=== PATIENT | female | born 1930 | race Caucasian/White ===

== ENCOUNTER 2016-06-01 14:25 | Emergency (ER) | payer MEDICARE, BC, OTHER ==
[~2016-06-01] VITALS: Ht 152.4 cm; Wt 79.4 kg
[~2016-06-01 14:25] MED LIST: /ATOR40TA PO; /WARF25TA; ACET65TA PO; AMLO5TAB2 PO; ASPI81TA83; ASPI81TA85 PO; ATEN25TA PO; B-1210009 PO; BISA10SU2; CALC1CAP31 PO; CIPR500T89 PO; CIPRO; COLA100C2; CORE25TA PO; DARV100T; DEMA20TA6 PO; DULC5TAB PO; EX-L5TAB; FE T325T PO; FERR325T; FERR325T3 PO; FLUC150T PO; FOLI1TAB2 PO; FOLI1TAB86 PO; HYDR50TA7; INSUDET SC; INSUH10VL SC; INSUHUMDS SC; INSULIN NPH SC; ISOS20TAB PO; LASI20TA PO; LEVEINJ SC; LEVOXYL25 MCG; LIPI20TA PO; LOPI600T; LOPI600T PO; MULTCAP PO; MULTIVIT; NORV5TAB; PERC5TAB6 PO; POTA75TA2 PO; SYNT100T PO; SYNT137T7 PO; TENO25TA; THERGRAN PO; TORS20TA2 PO; TYLE325T5 PO; ULTR50TA PO; VITA100027; VITA100072 PO; VITA500T; acetaminophen
[2016-06-01 15:40] LABS: BASO % 0.2 % (0.0-1.0); EOS # 0.2 K/mm3 (0.0-0.50); EOS % 1.7 % (0.0-3.0); LARGE UNSTAINED CELL # 0.1 K/mm3 (0.0-0.4); LARGE UNSTAINED CELL % 1.1 % (0.0-4.0); LYMPH # 1.4 K/mm3 (1.5-4.5); LYMPH % 12.8 % (24.0-44.0); MEAN CORPUSCULAR HEMOGLOBIN 29.2 pg (27.0-33.0); MEAN CORPUSCULAR HGB CONC 32.9 g/dl (32.0-36.5); MEAN CORPUSCULAR VOLUME 88.9 fl (80.0-96.0); MONO # 0.5 K/mm3 (0.0-0.8); MONO % 5.4 % (0.0-5.0); NEUTROPHILS # 7.8 K/mm3 (1.8-7.7); NEUTROPHILS % 78.9 % (36.0-66.0); PLATELET COUNT, AUTOMATED 308 k/mm3 (150-450); RED CELL DISTRIBUTION WIDTH 13.7 % (11.5-14.5); WHITE BLOOD COUNT 9.8 K/mm3 (4.0-10.0)
[2016-06-01 15:45] LABS: INR 0.99
[2016-06-01 16:11] LABS: ALBUMIN 2.6 GM/DL (3.2-5.2); ALBUMIN/GLOBULIN RATIO 0.65 (1.00-1.93); BILIRUBIN,DIRECT 0.2 MG/DL (0.0-0.2); BILIRUBIN,TOTAL 0.4 MG/DL (0.2-1.0); CALCIUM LEVEL 8.1 MG/DL (8.8-10.2); CREATININE FOR GFR 1.48 MG/DL (0.55-1.02); GLOMERULAR FILTRATION RATE 35.6 (>32); POTASSIUM SERUM 4.1 MEQ/L (3.5-5.1); TOTAL PROTEIN 6.6 GM/DL (6.4-8.2)
[2016-06-01 16:13] VITALS: BP 178/72
[2016-06-01] MEDS ORDERED: CIPR500T89 PO (16:27)
== END 2016-06-01 16:41 | disposition home or self-care (01) ==
LOC: M ED 15:15
DX: N30.00 Acute cystitis without hematuria (principal); E11.9 Type 2 diabetes mellitus without complications; I50.9 Heart failure, unspecified; I25.2 Old myocardial infarction; E03.9 Hypothyroidism, unspecified; Z90.5 Acquired absence of kidney; Z95.1 Presence of aortocoronary bypass graft; Z79.82 Long term (current) use of aspirin; Z79.899 Other long term (current) drug therapy; Z88.4 Allergy status to anesthetic agent; Z91.041 Radiographic dye allergy status; Z91.89 Other specified personal risk factors, not elsewhere classified; Z88.6 Allergy status to analgesic agent; Z88.2 Allergy status to sulfonamides

== ENCOUNTER 2016-06-17 13:28 | Emergency (ER) | payer MEDICARE, BC, OTHER ==
[~2016-06-17] VITALS: Ht 152.4 cm; Wt 80.3 kg
[2016-06-17] MEDS ORDERED: MIRA3350 PO (13:48)
[2016-06-17 14:18] LABS: BASO % 0.1 % (0.0-1.0); EOS # 0.1 K/mm3 (0.0-0.50); EOS % 1.1 % (0.0-3.0); LARGE UNSTAINED CELL # 0.1 K/mm3 (0.0-0.4); LARGE UNSTAINED CELL % 1.2 % (0.0-4.0); LYMPH # 1.1 K/mm3 (1.5-4.5); LYMPH % 10.8 % (24.0-44.0); MEAN CORPUSCULAR HEMOGLOBIN 29.2 pg (27.0-33.0); MEAN CORPUSCULAR HGB CONC 32.2 g/dl (32.0-36.5); MEAN CORPUSCULAR VOLUME 90.7 fl (80.0-96.0); MONO # 0.4 K/mm3 (0.0-0.8); MONO % 3.9 % (0.0-5.0); NEUTROPHILS # 8.7 K/mm3 (1.8-7.7); NEUTROPHILS % 82.9 % (36.0-66.0); PLATELET COUNT, AUTOMATED 336 k/mm3 (150-450); RED CELL DISTRIBUTION WIDTH 13.8 % (11.5-14.5); WHITE BLOOD COUNT 10.5 K/mm3 (4.0-10.0)
[2016-06-17 14:25] LABS: INR 0.99
[2016-06-17 14:38] LABS: CALCIUM LEVEL 8.7 MG/DL (8.8-10.2); CREATININE FOR GFR 1.72 MG/DL (0.55-1.02); GLOMERULAR FILTRATION RATE 29.9 (>32); POTASSIUM SERUM 3.9 MEQ/L (3.5-5.1)
[2016-06-17 16:12] VITALS: BP 181/79
--- NOTE | 2016-06-18 07:09 | REP ---
PELVIC ULTRASOUND: HISTORY: Bleeding. COMPARISON: No recent significant priors for comparison. Transvesical and transvaginal imaging was obtained. FINDINGS: The uterus measures 7.7 x 5.7 x 6.8 cm. The parenchymal echotexture is markedly heterogeneous. Innumerable areas of echogenic foci casting acoustic shadows noted. The endometrial echo complex is markedly abnormal measuring nearly 4 mm in thickness and is markedly heterogenous. Neither ovary could be visualized transvesically or transvaginally. There is no free fluid seen in the cul-de-sac. The urinary bladder measured approximately 7 x 4 x 6.8 cm. IMPRESSION: Markedly abnormal endometrial echo complex. Neoplastic change cannot be ruled out and in fact is suspected. Clinical correlation necessary. Myomatous changes and other findings as described above. Signed by Ravindra Gage DO 06/18/2016 09:20 A
== END 2016-06-17 16:13 | disposition home or self-care (01) ==
LOC: M ED 14:28
DX: N95.0 Postmenopausal bleeding (principal); R93.5 Abnormal findings on diagnostic imaging of other abdominal regions, including retroperitoneum; E11.9 Type 2 diabetes mellitus without complications; I10 Essential (primary) hypertension; I50.9 Heart failure, unspecified; Z87.442 Personal history of urinary calculi; Z79.82 Long term (current) use of aspirin; Z79.899 Other long term (current) drug therapy; Z79.4 Long term (current) use of insulin; Z91.041 Radiographic dye allergy status; Z91.89 Other specified personal risk factors, not elsewhere classified; Z88.6 Allergy status to analgesic agent; Z88.2 Allergy status to sulfonamides

== ENCOUNTER → 2016-06-22 | Outpatient (REF) | payer MEDICARE, BC, OTHER ==
[~2016-06-22] MED LIST changes: +MIRA3350 PO
== END ==
LOC: M LAB REF 16:57
PROVIDERS: ATTEND Specialist
DX: Z12.4 Encounter for screening for malignant neoplasm of cervix (principal); N95.0 Postmenopausal bleeding; C54.1 Malignant neoplasm of endometrium
CPT/HCPCS: 87624; 88304; G0123

== ENCOUNTER → 2016-07-08 | Outpatient (CLI) | payer MEDICARE, BC, OTHER ==
[2016-07-08 13:20] LABS: BASO % 0.3 % (0.0-1.0); EOS # 0.3 K/mm3 (0.0-0.50); EOS % 2.3 % (0.0-3.0); LARGE UNSTAINED CELL # 0.2 K/mm3 (0.0-0.4); LARGE UNSTAINED CELL % 1.7 % (0.0-4.0); LYMPH # 1.7 K/mm3 (1.5-4.5); LYMPH % 14.5 % (24.0-44.0); MEAN CORPUSCULAR HEMOGLOBIN 29.8 pg (27.0-33.0); MEAN CORPUSCULAR HGB CONC 33.1 g/dl (32.0-36.5); MEAN CORPUSCULAR VOLUME 90.1 fl (80.0-96.0); MONO # 0.6 K/mm3 (0.0-0.8); MONO % 4.9 % (0.0-5.0); NEUTROPHILS # 8.7 K/mm3 (1.8-7.7); NEUTROPHILS % 76.2 % (36.0-66.0); PLATELET COUNT, AUTOMATED 340 k/mm3 (150-450); RED CELL DISTRIBUTION WIDTH 14.5 % (11.5-14.5); WHITE BLOOD COUNT 11.4 K/mm3 (4.0-10.0)
[2016-07-08 13:39] LABS: ALBUMIN 2.7 GM/DL (3.2-5.2); ALBUMIN/GLOBULIN RATIO 0.68 (1.00-1.93); BILIRUBIN,TOTAL 0.5 MG/DL (0.2-1.0); CALCIUM LEVEL 8.7 MG/DL (8.8-10.2); CREATININE FOR GFR 1.53 MG/DL (0.55-1.02); FREE T4 1.75 NG/DL (0.76-1.46); GLOMERULAR FILTRATION RATE 34.3 (>32); POTASSIUM SERUM 4.3 MEQ/L (3.5-5.1); TOTAL PROTEIN 6.7 GM/DL (6.4-8.2)
== END ==
LOC: M SMT 10:01
PROVIDERS: ATTEND Family Medicine
DX: E11.22 Type 2 diabetes mellitus with diabetic chronic kidney disease (principal); E03.9 Hypothyroidism, unspecified